=== PATIENT | female | born 1960 | race Caucasian/White ===

== ENCOUNTER 2017-06-03 12:27 | Emergency (ER) | payer MEDICAID ==
[2017-06-03] MEDS ORDERED: morphine 4 MG/ML VIAL IV (12:38)
[2017-06-03] MEDS: morphine 4 MG/ML VIAL IM (13:25)
[2017-06-03] MEDS: KETOROLAC 60 MG INJ IM (13:25)
== END 2017-06-03 14:02 | disposition home or self-care (01) ==
LOC: FTE 12:27
DX: S16.1XXA Strain of muscle, fascia and tendon at neck level, initial encounter (principal); V89.2XXA Person injured in unspecified motor-vehicle accident, traffic, initial encounter
CPT/HCPCS: 72040; 96372; 99284-25